=== PATIENT | male | born 1995 | race Caucasian/White ===

== ENCOUNTER 2017-05-16 05:55 | Day surgery (SDC) | payer BC ==
[~2017-05-16] VITALS: Ht 185.4 cm; Wt 79.4 kg
[2017-05-16] MEDS ORDERED: LR 1,000 ML IV SCH (08:43)
[2017-05-16] MEDS ORDERED: METOCLOPRAMIDE HCL 10 MG/2 ML VIAL IVP PRN (08:45)
[2017-05-16] MEDS ORDERED: MORPHINE 4 MG/ML INJ. SYRINGE IVP PRN ×3 (08:45)
[2017-05-16] MEDS ORDERED: ROCURONIUM BROMIDE 10 MG/ML (ZEMURON) IV ONE (10:30)
[2017-05-16] MEDS ORDERED: NS IRRIG SOLN 1000 ML IR ONE (10:30)
[2017-05-16] MEDS ORDERED: LIDOCAINE/EPI 1% 1:100000 20 ML VIAL INJ ONE (10:30)
[2017-05-16] MEDS ORDERED: fentaNYL CITRATE 250 MCG/5 ML AMP IV ONE (10:30)
[2017-05-16] MEDS ORDERED: MUPIROCIN 2% TOPICAL OINTMENT 22 GM TP ONE (10:30)
[2017-05-16] MEDS ORDERED: EPINEPHrine 1 MG/ML AMP IV ONE (10:30)
[2017-05-16] MEDS ORDERED: MIDAZOLAM HCL 5 MG/ML VIAL (VERSED) IV ONE (10:30)
[2017-05-16] MEDS ORDERED: ONDANSETRON HCL 4 MG/2 ML VIAL IVP ONE (10:30)
[2017-05-16] MEDS ORDERED: OXYMETAZOLINE HCL 0.05% NASAL SPRAY NS ONE (10:30)
[2017-05-16] MEDS ORDERED: NS 1000 ML BAG IV ONE (10:30)
[2017-05-16] MEDS ORDERED: LR 1,000 ML IV.SOLN IV ONE (10:30)
[2017-05-16] MEDS ORDERED: DEXAMETHASONE SOD PHOSPHATE 4 MG/ML VIAL IVP ONE (10:30)
[2017-05-16] MEDS ORDERED: PROPOFOL 200MG/ 20ML VIAL (DIPRIVAN) IV ONE (10:30)
[2017-05-16] MEDS ORDERED: SEVOFLURANE 15 MIN GAS INH ONE (10:30)
[2017-05-16 11:43] VITALS: BP_SYST 116
== END 2017-05-16 13:25 | disposition home or self-care (01) ==
LOC: SDS 05:55 → SMU 05:55 → SDS 13:25
PROVIDERS: ATTEND Otolaryngology
DX: J34.2 Deviated nasal septum (principal); J32.9 Chronic sinusitis, unspecified; J34.89 Other specified disorders of nose and nasal sinuses; J30.1 Allergic rhinitis due to pollen; D38.5 Neoplasm of uncertain behavior of other respiratory organs
CPT/HCPCS: 30140; 30520; 30999; 31237; 31256; 31296; 31297; 42831; 88305; 88311; C1726; J0171; J1100; J2250; J2405; J2704; J3010; J7030; J7120